=== PATIENT | male | born 1970 | race American Indian/Alaskan Native ===

== ENCOUNTER 2016-06-29 13:30 | Emergency (ER) | payer MEDICAID ==
--- NOTE | 2016-06-29 16:43 | Emergency Department Report ---
ED General Adult HPI - General Chief complaint: Extremity Problem,Nontraumatic Stated complaint: LT LEG DVT Time Seen by Provider: 06/29/16 16:04 Source: EMS, old records reviewed Mode of arrival: Stretcher Limitations: Physical Limitation, Other - History of Present Illness Initial comments: 46-year-old male presents to the emergency department via EMS from a local senior care for evaluation of possible DVT. Patient was sent to the emergency department due to swelling of his bilateral legs. Patient has a history of previous DVTs and is currently on Coumadin. Patient is only complaining of pain in his right leg at the site of a wound on his right monson. There are no other complaints. -: unknown Location: left, right, lower extremity Consistency: constant Improves with: none Worsens with: none Associated Symptoms: denies other symptoms Treatments Prior to Arrival: none - Related Data Home Medications Medication Instructions Recorded Confirmed Last Taken Warfarin [Coumadin] 7.5 mg PO 3XW 06/29/16 06/29/16 06/29/16 Warfarin [Coumadin] 10 mg PO 3XW 06/29/16 06/29/16 06/28/16 Allergies Allergy/AdvReac Type Severity Reaction Status Date / Time No Known Allergies Allergy Unverified 06/29/16 13:43 ED Review of Systems ROS: Stated complaint: LT LEG DVT Other details as noted in HPI Comment: All other systems reviewed and negative Cardiovascular: edema Musculoskeletal: as per HPI ED Past Medical Hx - Past Medical History Previous Medical History?: Yes Hx Hypertension: Yes Hx CVA: Yes Hx Heart Attack/AMI: Yes Additional medical history: spinal cord injury--paraplegic. chronic right leg wound. PVD, DVTs - Surgical History Past Surgical History?: Yes - Family History Family history: no significant - Social History Smoking Status: Former Smoker Substance Use Type: None - Medications Home Medications: Home Medications Medication Instructions Recorded Confirmed Last Taken Type Warfarin [Coumadin] 7.5 mg PO 3XW 06/29/16 06/29/16 06/29/16 History Warfarin [Coumadin] 10 mg PO 3XW 06/29/16 06/29/16 06/28/16 History ED Physical Exam - General Limitations: Physical Limitation, Other General appearance: alert, in no apparent distress - Head Head exam: Present: atraumatic, normocephalic - Eye Eye exam: Present: normal appearance, PERRL, EOMI - ENT ENT exam: Present: normal exam, normal orophraynx, mucous membranes moist - Neck Neck exam: Present: normal inspection, full ROM. Absent: tenderness - Respiratory Respiratory exam: Present: normal lung sounds bilaterally. Absent: respiratory distress - Cardiovascular Cardiovascular Exam: Present: regular rate, normal rhythm, normal heart sounds - GI/Abdominal GI/Abdominal exam: Present: soft, normal bowel sounds. Absent: distended, tenderness - Extremities Exam Extremities exam: Present: other (bilateral lower extremity edema. Chronic appearing ulceration noted to the anterior aspect of the right lower leg. No drainage noted. No surrounding erythema. ). Absent: tenderness - Back Exam Back exam: Present: normal inspection, full ROM. Absent: tenderness - Neurological Exam Neurological exam: Present: alert, oriented X3. Absent: motor sensory deficit - Skin Skin exam: Present: warm, dry ED Course Vital Signs 06/29/16 13:44 Respiratory 16 Rate ED Medical Decision Making - Lab Data Result diagrams: 06/29/16 13:44 - Radiology Data Radiology results: report reviewed, image reviewed Doppler of the left lower extremity shows a chronic DVT in the common femoral vein, superficial femoral vein, and popliteal vein. - Medical Decision Making Lab and imaging results reviewed. Patient's INR is in the therapeutic range. Imaging shows a chronic appearing clot in the left leg. Patient will be discharged back to the senior care at this time to continue his anticoagulation. - Differential Diagnosis edema, DVT, chronic DVT Critical care attestation.: If time is entered above; I have spent that time in minutes in the direct care of this critically ill patient, excluding procedure time. ED Disposition Clinical Impression: Chronic deep vein thrombosis (DVT) Qualifiers: DVT location: lower extremity Affected thrombotic vein of extremity: femoral Laterality: left Qualified Code(s): I82.512 - Chronic embolism and thrombosis of left femoral vein Disposition: DISCHARGED TO HOME OR SELFCARE Is pt being admited?: No Condition: Stable Instructions: Deep Venous Thrombosis (ED) Referrals: PRIMARY CAREMD [Primary Care Provider] - 3-5 Days Time of Disposition: 17:01
[2016-06-29 16:45] LABS: Basophils % (Auto) 2.3 % (0.0-1.8); Hemoglobin 11.5 gm/dl (11.8-15.2); Mean Corpuscular HGB Conc 33 % (32-34); Mean Corpuscular Hemoglobin 27 pg (28-32); Mean Corpuscular Volume 82 fl (84-94); Platelet Count 238 K/mm3 (140-440); Red Blood Count 4.28 M/mm3 (3.65-5.03); Red Cell Distribution Width 15.5 % (13.2-15.2); White Blood Count 7.5 K/mm3 (4.5-11.0)
[2016-06-29] MEDS ORDERED: NORCO 5/325 PO ONE (16:49)
[2016-06-29 16:53] LABS: INR 2.37 (0.87-1.13)
[2016-06-29 16:54] LABS: Partial Thromboplastin Time 36.1 Sec. (24.2-36.6)
[2016-06-29 22:06] VITALS: BP 130/80
--- NOTE | 2016-06-30 07:50 | Vascular Lab Report ---
Left Lower Extremity Venous Duplex Study: Reason for Exam: Swelling, history of DVT. Comments on the Right: A limited duplex study was done of the proximal veins of the right lower extremity. All veins visualized are freely compressible without evidence of internal echogenicity. Flow is spontaneous and phasic throughout. No evidence of acute or chronic thrombus is seen in any of the vessels visualized. Comments on the Left: Chronic nonocclusive deep venous thromboses noted in the popliteal, femoral, common femoral veins.. The remaining veins visualized are freely compressible without evidence of internal echogenicity. Spontaneous and phasic flow is present proximally. Impression: Chronic deep venous thrombosis in the left lower extremity
== END 2016-06-29 21:35 | disposition home or self-care (01) ==
LOC: ED 13:30
DX: I82.512 Chronic embolism and thrombosis of left femoral vein (principal); I10 Essential (primary) hypertension; I63.9 Cerebral infarction, unspecified; I25.2 Old myocardial infarction; Z87.891 Personal history of nicotine dependence; Z79.01 Long term (current) use of anticoagulants
CPT/HCPCS: 36415; 85025; 85610; 85730

== ENCOUNTER 2019-02-03 00:17 | Emergency (ER) | payer MEDICAID ==
[2019-02-03 01:19] LABS: Basophils # (Auto) 0.1 K/mm3 (0.0-0.1); Basophils % (Auto) 0.8 % (0.0-1.8); Eosinophils % (Auto) 0.2 % (0.0-4.3); Hematocrit 34.5 % (35.5-45.6); Hemoglobin 11.6 gm/dl (11.8-15.2); Lymphocytes # (Auto) 1.4 K/mm3 (1.2-5.4); Lymphocytes % (Auto) 10.4 % (13.4-35.0); Mean Corpuscular HGB Conc 34 % (32-34); Mean Corpuscular Volume 83 fl (84-94); Monocytes % (Auto) 7.8 % (0.0-7.3); Platelet Count 214 K/mm3 (140-440); Red Blood Count 4.15 M/mm3 (3.65-5.03); Red Cell Distribution Width 14.9 % (13.2-15.2)
[2019-02-03] MEDS ORDERED: NACL 0.9% 1000 ML 1,000 ML IV ONE (01:20)
[2019-02-03] MEDS ORDERED: NACL 0.9% 1000 ML 1,000 ML ONE (01:22)
--- NOTE | 2019-02-03 01:30 | XRay Report ---
CHEST 1 VIEW INDICATION / CLINICAL INFORMATION: fever. COMPARISON: None available. FINDINGS: SUPPORT DEVICES: None. HEART / MEDIASTINUM: Changes of prior median sternotomy are noted. LUNGS / PLEURA: No significant pulmonary or pleural abnormality.. No pneumothorax. ADDITIONAL FINDINGS: No significant additional findings. IMPRESSION: 1. No acute findings. Signer Name: Julio Cesar Blanc MD Signed: 02/03/2019 1:25 AM Workstation Name: [id number]
[2019-02-03 01:31] LABS: Alanine Aminotransferase 23 units/L (7-56); Albumin 3.6 g/dL (3.9-5); BUN/Creatinine Ratio 16; Blood Urea Nitrogen 16 mg/dL (9-20); Hemolysis Index 6
[2019-02-03 03:10] LABS: Bacteria,Urine 1+ /HPF (Negative); Bilirubin,Urine NEG (Negative); Blood,Urine SM (Negative); Color,Urine Yellow (Yellow); Protein,Urine <15 mg/dL mg/dL (Negative)
--- NOTE | 2019-02-03 04:19 | Cat Scan Report ---
CT abdomen pelvis w con INDICATION: left flank pain, fever. TECHNIQUE: All CT scans at this location are performed using the following dose modulation technique: Automated exposure control. Helical slices were obtained through the abdomen and pelvis. 100 cc of Omnipaque 30 0 is administered. COMPARISON: None available. FINDINGS: Abdomen: There is minimal subsegmental atelectasis in the lung bases. There are multiple collateral v eins in the subcutaneous fat of the abdomen and pelvis. The liver, spleen, pancreas, adrenal glands, and left kidney are unremarkable. There is scarring in t he lower pole the right kidney. There is an IVC filter. Pelvis: There is sigmoid diverticulitis there is no abscess. There is no free air. There is adenopathy in the iliac chains left greater than right. Index left iliac chain node which me asures approximately 2.3 cm in short axis. There enlarged nodes in the left groin. On review of bone windows, no acute osseous abnormalities are seen. IMPRESSION: 1. There is diverticulitis involving the proximal sigmoid colon. There is no abscess or free air. 2. There is pelvic adenopathy. There are extensive collateral veins in the subcutaneous fat of the abdomen and pelvis. Signer Name: Julio Cesar Blanc MD Signed: 02/03/2019 4:15 AM Workstation Name: [id number]
[2019-02-03] MEDS ORDERED: LEVAQUIN PO ONE (04:43)
[2019-02-03] MEDS ORDERED: FLAGYL PO ONE (04:43)
--- NOTE | 2019-02-03 05:00 | Emergency Department Report ---
ED Fever HPI - General Chief Complaint: Weakness Stated Complaint: WEAKNESS/HEADACHE Time Seen by Provider: 02/03/19 00:51 Source: patient, senior living records - History of Present Illness Initial Comments: 48 yo M, hx CVA, sent from senior living for fever. Pt has been weak, having frequent urination, and ZAMBRANO. Pt reports left flank pain and nasal congestion. Pt had temp of 102 at nursing, tylenol given prior to arrival. Timing/Duration: other (2 days) Fever Severity/Quality: greater than 102 F Fever Therapy CHILD CARE AIDE: Tylenol Associated Symptoms: abdominal pain, headache, other (nasal congestion, frequent urination) ED Review of Systems ROS: Stated complaint: WEAKNESS/HEADACHE Other details as noted in HPI Comment: All other systems reviewed and negative Constitutional: fever ENT: congestion Respiratory: denies: cough, shortness of breath Gastrointestinal: abdominal pain. denies: nausea, vomiting, diarrhea Genitourinary: frequency Neurological: headache ED Past Medical Hx - Past Medical History Previous Medical History?: Yes Hx Hypertension: Yes Hx CVA: Yes Hx Heart Attack/AMI: Yes Additional medical history: spinal cord injury--paraplegic. chronic right leg wound. PVD, DVTs - Social History Smoking Status: Former Smoker Substance Use Type: None - Medications Home Medications: Home Medications Medication Instructions Recorded Confirmed Last Taken Type Warfarin [Coumadin] 7.5 mg PO 3XW 06/29/16 06/29/16 06/29/16 History Warfarin [Coumadin] 10 mg PO 3XW 06/29/16 06/29/16 06/28/16 History Ciprofloxacin HCl [Ciprofloxacin 500 mg PO Q12HR 10 Days #20 tab 02/03/19 Unknown Rx TAB] metroNIDAZOLE [Flagyl] 500 mg PO Q12HR 10 Days #20 tab 02/03/19 Unknown Rx ED Physical Exam - General Limitations: No Limitations General appearance: alert, in no apparent distress - Head Head exam: Present: atraumatic, normocephalic - Eye Eye exam: Present: normal appearance - ENT ENT exam: Present: mucous membranes moist - Neck Neck exam: Present: normal inspection - Respiratory Respiratory exam: Present: normal lung sounds bilaterally. Absent: respiratory distress - Cardiovascular Cardiovascular Exam: Present: normal rhythm, tachycardia - GI/Abdominal GI/Abdominal exam: Present: soft, tenderness (mild LLQ tenderness). Absent: distended - Extremities Exam Extremities exam: Present: normal inspection - Neurological Exam Neurological exam: Present: alert, oriented X3, motor sensory deficit - Psychiatric Psychiatric exam: Present: normal affect, normal mood - Skin Skin exam: Present: warm, dry, intact, normal color. Absent: rash ED Course Vital Signs 02/03/19 02/03/19 02/03/19 00:35 07:30 12:22 Temperature 99.4 F 99 F 99.2 F Pulse Rate 116 H 106 H 95 H Respiratory 16 12 18 Rate Blood Pressure 119/79 Blood Pressure 119/79 130/87 130/93 [Left] O2 Sat by Pulse 98 100 100 Oximetry ED Medical Decision Making - Lab Data Result diagrams: 02/03/19 01:06 02/03/19 01:06 - Radiology Data Radiology results: report reviewed, image reviewed - Medical Decision Making Pt afebrile here in the ED. Initially slightly tachycardic but that resolved w/ IV fluid bolus. BP normal and stable. WBCs mildly elevated at 13. CXR and urine normal. CT scan shows evidence of diverticulitis without perforation or abscess. Pt given flagyl and levaquin here in the ED. Pt is stable, comfortable. Will not require admission at this time. Will d/c back to senior living with prescriptions for antibiotics. - Differential Diagnosis URI, pneumonia, UTI Critical care attestation.: If time is entered above; I have spent that time in minutes in the direct care of this critically ill patient, excluding procedure time. ED Disposition Clinical Impression: Diverticulitis Disposition: -01 TO HOME OR SELFCARE Is pt being admited?: No Condition: Stable Instructions: Diverticulitis (ED) Prescriptions: Ciprofloxacin HCl [Ciprofloxacin TAB] 500 mg PO Q12HR 10 Days #20 tab metroNIDAZOLE [Flagyl] 500 mg PO Q12HR 10 Days #20 tab Referrals: JOHANA RIZVI MD [Referring] - 3-5 Days Time of Disposition: 05:46
[2019-02-03 12:22] VITALS: BP 130/93
== END 2019-02-03 12:43 | disposition home or self-care (01) ==
LOC: ED 00:17
DX: K57.92 Diverticulitis of intestine, part unspecified, without perforation or abscess without bleeding (principal)
CPT/HCPCS: 36415; 71045; 74177; 80053; 81001; 82962; 85025; 99285; J7030; Q9967

== ENCOUNTER 2020-03-02 16:41 | Emergency (ER) | payer MEDICAID ==
[2020-03-02 18:09] LABS: Amphetamine Screen,Urine PRESUMPTIVE NEGATIVE; Benzodiazepines Screen,Urine PRESUMPTIVE NEGATIVE; Cannabinoid Screen,Urine PRESUMPTIVE NEGATIVE; Cocaine Screen,Urine PRESUMPTIVE NEGATIVE; Methadone Screen,Urine PRESUMPTIVE NEGATIVE; Opiate Screen,Urine PRESUMPTIVE NEGATIVE
[2020-03-02 18:17] LABS: Bilirubin,Urine NEG (Negative); Blood,Urine LG (Negative); Color,Urine Yellow (Yellow); Protein,Urine <15 mg/dL mg/dL (Negative); Urobilinogen,Urine < 2.0 mg/dL (<2.0)
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
[2020-03-02 18:44] LABS: Basophils # (Auto) 0.1 K/mm3 (0.0-0.1); Basophils % (Auto) 1.7 % (0.0-1.8); Eosinophils # (Auto) 0.1 K/mm3 (0.0-0.4); Eosinophils % (Auto) 1.6 % (0.0-4.3); Hematocrit 36.2 % (35.5-45.6); Mean Corpuscular HGB Conc 33 % (32-34); Mean Corpuscular Volume 84 fl (84-94); Monocytes # (Auto) 0.5 K/mm3 (0.0-0.8); Monocytes % (Auto) 9.3 % (0.0-7.3); Platelet Count 289 K/mm3 (140-440); Red Blood Count 4.33 M/mm3 (3.65-5.03); Red Cell Distribution Width 16.7 % (13.2-15.2)
[2020-03-02 18:53] LABS: BUN/Creatinine Ratio 13; Blood Urea Nitrogen 14 mg/dL (9-20); Calcium 9.5 mg/dL (8.4-10.2); Hemolysis Index 52
[2020-03-02] MEDS: QUEtiapine 25 MG TAB PO SCH (22:11)
[2020-03-02] MEDS: GABAPENTIN 300 MG CAP PO SCH (22:12)
[2020-03-02] MEDS: oxyCODONE /ACETAMINOPHEN 5-325MG TAB PO PRN (22:15)
[2020-03-03] MEDS: GABAPENTIN 300 MG CAP PO SCH ×2 (10:59→22:49)
[2020-03-03] MEDS: FUROSEMIDE 20 MG TAB PO SCH (10:59)
[2020-03-03] MEDS: ASPIRIN 81 MG TAB CHEW PO SCH (10:59)
[2020-03-03] MEDS: METOPROLOL TARTRATE 50 MG TAB PO SCH (10:59)
[2020-03-03] MEDS: oxyCODONE /ACETAMINOPHEN 5-325MG TAB PO PRN ×2 (11:00→22:51)
[2020-03-03] MEDS: QUEtiapine 25 MG TAB PO SCH (22:49)
[2020-03-04] MEDS: oxyCODONE /ACETAMINOPHEN 5-325MG TAB PO PRN (07:34)
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
[2020-03-04] MEDS: GABAPENTIN 300 MG CAP PO SCH ×2 (13:57→21:27)
[2020-03-04] MEDS: ASPIRIN 81 MG TAB CHEW PO SCH (13:57)
[2020-03-04] MEDS: FUROSEMIDE 20 MG TAB PO SCH (13:58)
[2020-03-04] MEDS: METOPROLOL TARTRATE 50 MG TAB PO SCH (13:58)
[2020-03-04 20:05] VITALS: BP 124/92
[2020-03-04] MEDS: QUEtiapine 25 MG TAB PO SCH (21:29)
== END 2020-03-04 21:30 | disposition home or self-care (01) ==
LOC: ED 16:41
DX: I10 Essential (primary) hypertension (principal); I25.2 Old myocardial infarction; F17.200 Nicotine dependence, unspecified, uncomplicated; Z79.899 Other long term (current) drug therapy; Z86.73 Personal history of transient ischemic attack (TIA), and cerebral infarction without residual deficits
CPT/HCPCS: 36415; 80048; 80307; 81001; 85025; 93005; 99284; U0003; 80320; G0480

== ENCOUNTER 2020-04-10 15:54 | Emergency (ER) | payer MEDICAID ==
[2020-04-10] MEDS ORDERED: LIDOCAINE 2%/EPINEPHRINE 1:200,000 VIAL (20 ML) INFILTRATI ONE (16:54)
[2020-04-10] MEDS ORDERED: LIDOCAINE 1%/EPINEPHRINE 1:100,000 VIAL (20 ML) INFILTRATI ONE (16:57)
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
[2020-04-10] MEDS ORDERED: DIPHtheria,PERTUSSIS(ACELL),TETANUS VACCINE/PF 0.5 ML VIAL IM ONE ×2 (17:43→22:54)
[2020-04-10 20:56] LABS: Basophils # (Auto) 0.1 K/mm3 (0.0-0.1); Basophils % (Auto) 1.2 % (0.0-1.8); Eosinophils # (Auto) 0.1 K/mm3 (0.0-0.4); Eosinophils % (Auto) 1.3 % (0.0-4.3); Hematocrit 28.8 % (35.5-45.6); Hemoglobin 9.8 gm/dl (11.8-15.2); Lymphocytes # (Auto) 2.2 K/mm3 (1.2-5.4); Mean Corpuscular HGB Conc 34 % (32-34); Mean Corpuscular Volume 83 fl (84-94); Monocytes # (Auto) 0.5 K/mm3 (0.0-0.8); Monocytes % (Auto) 7.2 % (0.0-7.3); Platelet Count 249 K/mm3 (140-440); Red Blood Count 3.46 M/mm3 (3.65-5.03); Red Cell Distribution Width 15.2 % (13.2-15.2)
[2020-04-10 21:04] LABS: INR 1.18 (0.87-1.13)
[2020-04-10 21:05] LABS: Partial Thromboplastin Time 27.2 Sec. (24.2-36.6)
[2020-04-10 21:14] LABS: Alanine Aminotransferase 30 units/L (7-56); Albumin 3.4 g/dL (3.9-5); BUN/Creatinine Ratio 26; Blood Urea Nitrogen 23 mg/dL (9-20); Calcium 8.9 mg/dL (8.4-10.2); Hemolysis Index 17
[2020-04-10 22:15] VITALS: BP 112/94
== END 2020-04-10 23:30 | disposition home or self-care (01) ==
LOC: ED 15:54
DX: S89.92XA Unspecified injury of left lower leg, initial encounter (principal); I25.2 Old myocardial infarction; I10 Essential (primary) hypertension; F17.200 Nicotine dependence, unspecified, uncomplicated; Z86.73 Personal history of transient ischemic attack (TIA), and cerebral infarction without residual deficits; Z98.890 Other specified postprocedural states; Z79.899 Other long term (current) drug therapy; W01.0XXA Fall on same level from slipping, tripping and stumbling without subsequent striking against object, initial encounter; Y93.89 Activity, other specified; Y92.89 Other specified places as the place of occurrence of the external cause; Y99.8 Other external cause status
CPT/HCPCS: 36415; 80053; 82962; 85025; 85610; 85730; 86850; 86900; 86901; 90471; 90715